=== PATIENT | male | born 1985 | race Caucasian/White ===

== ENCOUNTER 2016-07-22 10:53 | Emergency (ER) | payer OTHER, BC ==
[~2016-07-22] VITALS: Ht 170.2 cm; Wt 91.8 kg
[2016-07-22] MEDS ORDERED: NAPROSYN500 MG PO (15:45)
[2016-07-22] MEDS ORDERED: FLEXERIL10 MG PO (15:45)
[2016-07-22] MEDS ORDERED: NORCO 5/3251 TABLET PO (15:45)
[2016-07-22 15:58] VITALS: BP 135/81
== END 2016-07-22 15:59 | disposition home or self-care (01) ==
LOC: EME 10:53
DX: S39.012A Strain of muscle, fascia and tendon of lower back, initial encounter (principal); X50.0XXA Overexertion from strenuous movement or load, initial encounter; Y99.0 Civilian activity done for income or pay; F17.200 Nicotine dependence, unspecified, uncomplicated
CPT/HCPCS: 72100; 99281; 99284; J1885